=== PATIENT | male | born 1955 | race Caucasian/White ===

== ENCOUNTER 2018-05-31 17:11 | Emergency (ER) | payer BC ==
[~2018-05-31] VITALS: Ht 185.4 cm; Wt 88.3 kg
[~2018-05-31 17:11] MED LIST: FLOMAX0.4 MG PO; IBUPROFEN 200200 M1 PO; IBUPROFEN 600600 M1 PO; NORCO 5-325 TA1 EACH PO
[2018-05-31 20:15] VITALS: BP 130/96
== END 2018-05-31 20:00 | disposition home or self-care (01) ==
LOC: ER 17:11
DX: S50.311A Abrasion of right elbow, initial encounter (principal); M54.5 Low back pain; Z87.442 Personal history of urinary calculi; F17.210 Nicotine dependence, cigarettes, uncomplicated; W11.XXXA Fall on and from ladder, initial encounter; Y93.89 Activity, other specified; Y92.89 Other specified places as the place of occurrence of the external cause; Y99.8 Other external cause status

== ENCOUNTER 2021-01-15 02:20 | Emergency (ER) | payer BC ==
[~2021-01-15] VITALS: Ht 182.9 cm; Wt 86.2 kg
--- NOTE | ~2021-01-15 | EMS ---
[address] [address] EMS Patient Care Report Name: SLICK MILLS Room #: DEP JEANETTE Aponte#: [id number] Admission: 01/15/21 Attend Phys: Discharge: 01/15/21 Date of : 59 Report #: [id number] THIS REPORT FOR: //name// Report Transmitted: 01/15/2021 07:54 EMS Care Summary [facility] Incident [id number] @ 01/15/2021 01:36 Incident Location [address] [place] [address] Patient SLICK MILLS Male, 65 Years 1955 Patient Address [address] [place] [id number] Patient History Other,Stroke/CVA,Hyperlipidemia,Atrial Fibrillation, Patient Allergies No known allergies, Patient Medications Acetaminophen, Docusate Sodium, Lidocaine, Amoxicillin, Fluticasone, ASA, Atorvastatin, Eliquis, Melatonin, Senna, Diltiazem, Chief Complaint My neck and right side of body hurts Disposition Transported No Lights/[place] Dispatch Reason Chest Pain (Non-Traumatic) Transported To [facility] Narrative Arrived on scene to find a 65 y/o male who presented alert, with ABC's intact, obvious left sided facial droop, in NAD, laying supine on rehab center bed, [address] [address] EMS Patient Care Report Name: SLICK MILLS Room #: DEP [facility]#: [id number] Admission: 01/15/21 Attend Phys: Discharge: 01/15/21 Date of : 59 Report #: [id number] being assessed by [facility] personnel. Staff reports this pt is currently rehabbing at their facility after having a CVA that let him with left sided deficits. Staff reports that the pt had a 12 lead done after c/o neck pain. Staff reports that 12 lead "flagged ST wave abnormalities". Staff reports that the they would like him evaluated at ED for a possible cardiac event. Pt agreed with hx of right sided neck pain. he reports that this pain goes from the right side of his neck, down to his right shoulder, and down the entire right side of his body. Pt reports that he has been having this pain for the past 7 days. Pt described this pain as a "ache" and denied any change in his pain on palpation. Pt denied any episodes of C/P, SOA, N/V, abdominal pain, dizziness, or any other medical complaints. 12 lead acquired by EMS showed uncontrolled A-fib with no acute changes. Pt has a hx of A-fib according to medical records given to EMS by rehab staff. Pt was transported to ED for further eval as requested. See VS tab, assessment tab, and flowchart for further pt care information. 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,Surgical Mask on Patient, 01:34,Call Received 01:34,Psap Call 01:36,Dispatched 01:38,En Route 01:46,On Scene 01:49,At Patient 01:50,BP: 155/102 M,PULSE: 76,RR: 14 R,SPO2: 96 Ox,ETCO2: ,BG: ,PAIN: 2,GCS: 15, 01:54,12-Lead ECG,Response: UnchangedSucceeded, 01:54,BP: / M,PULSE: 99,RR: R,SPO2: 93 Ox,ETCO2: ,BG: ,PAIN: ,GCS: , 02:05,BP: 132/89 M,PULSE: 68,RR: R,SPO2: 97 Ox,ETCO2: ,BG: ,PAIN: ,GCS: , [facility] [address] [place] [address] EMS Patient Care Report Name: SLICK MILLS Room #: DEP JEANETTE Aponte#: [id number] Admission: 01/15/21 Attend Phys: Discharge: 01/15/21 Date of : 59 Report #: [id number] 02:07,Depart Scene 02:13,BP: 159/119 M,PULSE: 107,RR: 14 R,SPO2: 94 Ox,ETCO2: ,BG: ,PAIN: 2,GCS: 15, 02:16,At Destination 02:31,Call Closed Disclaimer [email or web address] Copyright 2020 [employer] This EMS Care Summary contains data elements from the applicable legal record (which may be displayed differently). It is designed to provide pertinent information for the following purposes: continuity of care, clinical quality, and state data reporting. The complete legal record is available to ED staff and administrators of the receiving hospital in [facility]'s Patient Tracker. All data is provided "as is."
[2021-01-15 02:45] LABS: ABSOLUTE NEUTROPHILS 3.8 thou/uL (1.4-8.2); BASOPHILS 1.4 % (0.0-2.0); EOSINOPHILS 2.9 % (0.0-3.0); HEMOGLOBIN 15.2 gm/dL (14.0-18.0); LYMPHOCYTES 27.3 % (24.0-44.0); MCH 29.4 pg (26.0-34.0); MCHC 33.8 g/dL (28.0-37.0); MCV 86.9 fL (80.0-100.0); MONOCYTES 9.3 % (1.0-8.0); PLATELET COUNT 330 thou/uL (150-400); POLYS 59.1 % (36.0-66.0); RBC 5.18 mil/uL (4.50-6.00); RDW 14.8 % (10.5-14.5); WBC 6.4 thou/uL (4.0-11.0)
[2021-01-15 02:46] LABS: CALCIUM 9.3 mg/dL (8.5-10.1); POTASSIUM 4.1 mmol/L (3.5-5.1)
[2021-01-15] MEDS ORDERED: AMOX TR-K CLV1 EAC4 PO (02:49)
[2021-01-15] MEDS ORDERED: ELIQUIS5 MG PO (02:49)
[2021-01-15] MEDS ORDERED: ASA81BEC PO (02:50)
[2021-01-15] MEDS ORDERED: LIPITOR 20 MG T20 M1 PO (02:51)
[2021-01-15] MEDS ORDERED: CARDIZEM CD240 M1 PO (02:51)
[2021-01-15] MEDS ORDERED: COLACE100 MG PO (02:52)
[2021-01-15] MEDS ORDERED: TRAMADOL 50 MG50 MG PO (02:53)
[2021-01-15] MEDS ORDERED: MUCINEX600 MG PO (02:53)
[2021-01-15 02:56] LABS: TOTAL BILIRUBIN 0.4 mg/dL (0.2-1.0); TOTAL PROTEIN 6.9 g/dL (6.4-8.2)
[2021-01-15] MEDS ORDERED: VALIUM2 MG PO (04:14)
[2021-01-15 05:10] VITALS: BP 145/104
--- NOTE | 2021-01-15 07:36 | EKG ---
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
== END 2021-01-15 05:21 | disposition short-term general hospital (02) ==
LOC: ER 02:20
PROVIDERS: Emergency Medicine
DX: I48.91 Unspecified atrial fibrillation (principal); M25.511 Pain in right shoulder; F17.210 Nicotine dependence, cigarettes, uncomplicated; Z79.82 Long term (current) use of aspirin; Z79.899 Other long term (current) drug therapy